=== PATIENT | female | born 1995 | race Caucasian/White ===

== ENCOUNTER 2019-08-15 09:11 | Emergency (ER) | payer OTHER ==
[~2019-08-15] VITALS: Ht 165.1 cm; Wt 83.9 kg
[2019-08-15 09:29] VITALS: BP 133/84
--- NOTE | 2019-08-15 09:41 | NUR ---
C/O NECK PAIN 03/27. WOKE UP WITH SEVERE NECK PAIN. UNABLE TO TURN HEAD TO SIDE. PT DENIES ANY RECENT INJURIES, NO NUCHAL REIGDITY NOTED. PT DENIES COUGH AND FEVER. FAMILY AT BEDSIDE, BED IN LOW POSITION, SIDE RAIL UP X 1. WILL CONTINUE TO MONITOR.
[2019-08-15] MEDS: KETOROLAC 60 MG/2 ML VIAL IM ONE (10:23)
[2019-08-15 10:43] VITALS: BP 127/78
--- NOTE | 2019-08-15 10:46 | NUR ---
Patient discharged with v/s stable. Written and verbal after care instructions given and explained. Patient alert, oriented and verbalized understanding of instructions. Ambulatory with steady gait. All questions addressed prior to discharge. ID band removed. Patient advised to follow up with PMD. Rx of toradol and motrin given. Patient educated on indication of medication including possible reaction and side effects. Opportunity to ask questions provided and answered.
== END 2019-08-15 10:46 | disposition home or self-care (01) ==
LOC: MED 09:11
DX: S13.4XXA Sprain of ligaments of cervical spine, initial encounter (principal); X58.XXXA Exposure to other specified factors, initial encounter; Y93.89 Activity, other specified; Y92.89 Other specified places as the place of occurrence of the external cause; Y99.8 Other external cause status
CPT/HCPCS: 72040; 96372; 99283; J1885

== ENCOUNTER 2021-04-25 12:58 | Emergency (ER) | payer OTHER ==
[~2021-04-25] VITALS: Ht 165.1 cm; Wt 93.1 kg
[2021-04-25 13:27] VITALS: BP 150/83
--- NOTE | 2021-04-25 13:32 | NUR ---
PATIENT AMBULATED 8.
--- NOTE | 2021-04-25 13:41 | NUR ---
25 Y/O FEMALE BIB MOTHER FOR A C/O OF ACHING 4/10 CHEST PAIN X 2 DAYS. AOX 4, ABLE TO MAKE NEEDS KNOWN. CURRENTLY 16 WEEKS WITH VACCINATIONS UTD. C/O RIGHT CHEST PAIN X 2 DAYS. LMP 12/27/20. 3 MONTHS. DENIES N/V/D. NO COUGH PRESENT PMH: DENIES ALLERGIES: DENIES HOME MEDS: DENIES
[2021-04-25] MEDS ORDERED: ACETAMINOPHEN 325 MG TAB PO ONE (14:45)
[2021-04-25 15:00] LABS: BASOPHILS # (AUTO) 0.1 K/uL (0.00-0.22); BASOPHILS % (AUTO) 0.6 % (0.0-2.0); EOSINOPHILS # (AUTO) 0.3 K/uL (0-0.4); EOSINOPHILS % (AUTO) 2.1 % (0.0-4.0); HEMATOCRIT 36.7 % (36-48); HEMOGLOBIN 12.5 g/dL (12.0-16.0); LYMPHOCYTES # (AUTO) 2.5 K/uL (2.5-16.5); LYMPHOCYTES % (AUTO) 20.3 % (20.5-51.1); MEAN CORPUSCULAR HEMOGLOBIN 30 pg (27-31); MEAN CORPUSCULAR HGB CONC 34 g/dL (33-37); MEAN CORPUSCULAR VOLUME 89.5 fL (80-94); MONOCYTES # (AUTO) 0.9 K/uL (0.8-1.0); MONOCYTES % (AUTO) 7.5 % (1.7-9.3); NEUTROPHILS # (AUTO) 8.5 K/uL (1.8-7.7); NEUTROPHILS % (AUTO) 69.5 % (42.2-75.2); PLATELET COUNT (AUTO) 352 K/uL (140-450); RED CELL DISTRIBUTION WIDTH 13.3 % (11.6-13.7); WHITE BLOOD COUNT (AUTO) 12.2 K/uL (4.8-10.8)
--- NOTE | 2021-04-25 15:00 | NUR ---
RADIOLOGY AT BEDSIDE TO TAKE XRAYS
[2021-04-25 15:14] LABS: ALBUMIN 3.5 g/dL (3.4-5.0); ANION GAP 15.1 (8-16); CARBON DIOXIDE 20.9 mmol/L (21-32); CREATININE 0.6 mg/dL (0.6-1.3); TOTAL BILIRUBIN 0.3 mg/dL (0.0-1.0)
--- NOTE | 2021-04-25 15:47 | NUR ---
Urine collected and walked to lab
[2021-04-25 15:51] LABS: BILIRUBIN,URINE NEGATIVE (NEGATIVE); BLOOD, URINE TRACE-I (NEGATIVE); COLOR,URINE YELLOW (YELLOW); LEUKOCYTE ESTERASE ,URINE 1+ (NEGATIVE); NITRITE, URINE NEGATIVE (NEGATIVE); PH,URINE 5.5 (5.0-9.0); UGLUCOSE NEGATIVE (NEGATIVE)
[2021-04-25 16:12] LABS: APPEARANCE,URINE HAZY (CLEAR)
[2021-04-25 16:28] LABS: RBC,URINE 0-5 /HPF (0-5)
--- NOTE | 2021-04-25 17:10 | NUR ---
Patient appears to be resting comfortably in bed. Vital Signs within normal limits. Respirations even and unlabored.
[2021-04-25] MEDS ORDERED: CEPH250C16 PO (17:36)
[2021-04-25 19:10] VITALS: BP 135/72
--- NOTE | 2021-04-25 19:10 | NUR ---
Patient discharged with v/s stable. Written and verbal after care instructions given and explained. Patient alert, oriented and verbalized understanding of instructions. Ambulatory with steady gait. All questions addressed prior to discharge. ID band removed. Patient advised to follow up with PMD. Patient educated on indication of medication including possible reaction and side effects. Opportunity to ask questions provided and answered.
== END 2021-04-25 19:10 | disposition home or self-care (01) ==
LOC: MED 12:58
DX: O99.411 Diseases of the circulatory system complicating pregnancy, first trimester (principal); R07.89 Other chest pain; O23.41 Unspecified infection of urinary tract in pregnancy, first trimester; Z79.2 Long term (current) use of antibiotics; Z3A.12 12 weeks gestation of pregnancy
CPT/HCPCS: 36415; 71045; 80053; 81001; 84484; 85025; 87086; 99285; Q0092